=== PATIENT | female | born 1930 | race African-American/Black ===

== ENCOUNTER 2021-08-13 15:57 | Emergency (ER) | payer OTHER ==
[~2021-08-13] VITALS: Ht 162.6 cm; Wt 50.0 kg
[2021-08-13 17:02] LABS: EOSINOPHILS % 1.4 % (0.0-5.0); HEMOGLOBIN. 12.1 g/dL (12.0-16.0); LYMPHOCYTES % 36.6 % (20.0-50.0); MEAN CORPUSCULAR HEMOGLOBIN 27.7 pg (28.0-32.0); MEAN CORPUSCULAR VOLUME 84.8 fL (81.0-99.0); MEAN PLATELET VOLUME 8.7 fl (7.4-10.4); PLATELET 239 x1000/uL (130-400); RED BLOOD CELL COUNT 4.37 mill/uL (4.2-5.4); RED CELL DISTRIBUTION WIDTH 14.8 % (11.6-14.6)
[2021-08-13 17:11] LABS: CHLORIDE 97 mEq/L (98-107)
[2021-08-13] MEDS ORDERED: FENTANYL CITRATE/PF 50MCG/ML 2ML VIAL IV ONE (17:30)
[2021-08-13] MEDS ORDERED: SODIUM CHLORIDE 0.9% 1,000 ML IV ONE (18:15)
[2021-08-13] MEDS ORDERED: IOHEXOL-350 100 ML BOTTLE ONE (19:04)
[2021-08-14 01:00] VITALS: BP 120/60
== END 2021-08-14 01:40 | disposition short-term general hospital (02) ==
LOC: ER 15:57 → CANBEDREQ 08-14 07:45
DX: S72.142A Displaced intertrochanteric fracture of left femur, initial encounter for closed fracture (principal); R51.9 Headache, unspecified; M54.2 Cervicalgia; M25.551 Pain in right hip; W01.190A Fall on same level from slipping, tripping and stumbling with subsequent striking against furniture, initial encounter; Y93.89 Activity, other specified; Y92.013 Bedroom of single-family (private) house as the place of occurrence of the external cause; I70.293 Other atherosclerosis of native arteries of extremities, bilateral legs; K80.20 Calculus of gallbladder without cholecystitis without obstruction; I10 Essential (primary) hypertension; Z20.822 Contact with and (suspected) exposure to COVID-19; F03.90 Unspecified dementia, unspecified severity, without behavioral disturbance, psychotic disturbance, mood disturbance, and anxiety
CPT/HCPCS: 36415; 70450; 71045; 72125; 73502; 75635; 80053; 83690; 84484; 85025; 86850; 86900; 86901; 87426; 96361; 96374; 99291; J3010; J7030; Q9967